=== PATIENT | female | born 1980 | race Caucasian/White ===

== ENCOUNTER 2018-10-07 10:59 | Emergency (ER) | payer OTHER ==
[~2018-10-07] VITALS: Wt 61.2 kg
[~2018-10-07 10:59] MED LIST: FLEXERIL5 MG PO; VOLTAREN50 M1 PO
== END 2018-10-07 13:04 | disposition home or self-care (01) ==
LOC: ED 10:59
DX: S27.818A Other injury of esophagus (thoracic part), initial encounter (principal); Z88.1 Allergy status to other antibiotic agents; Z88.2 Allergy status to sulfonamides; X58.XXXA Exposure to other specified factors, initial encounter; Y93.89 Activity, other specified; Y92.69 Other specified industrial and construction area as the place of occurrence of the external cause; Y99.8 Other external cause status